=== PATIENT | female | born 1935 | race Caucasian/White ===

== ENCOUNTER 2019-06-14 15:44 | Day surgery (SDC) ==
[2019-06-14] MEDS ORDERED: XYLOCAINE-MPF 2% ONE (15:49)
[2019-06-14] MEDS ORDERED: NEO-SYNEPHRINE ONE (15:49)
[2019-06-14] MEDS ORDERED: SODIUM CHLORIDE 0.9% 20 ML ONE (15:49)
[2019-06-14] MEDS ORDERED: ROBINUL ONE (15:49)
[2019-06-14] MEDS ORDERED: QUELICIN (DOSE) ONE (15:49)
[2019-06-14] MEDS ORDERED: DIPRIVAN 1% ONE (15:56)
[2019-06-14] MEDS ORDERED: KEFZOL 1 GM/D5W 2 GM/100 ML IVPB ONE (16:13)
[2019-06-14] MEDS ORDERED: LR 1,000 ML ONE ×2 (16:14→18:28)
[2019-06-14] MEDS: NITROGLYCERIN 0.1MG/HR PATCH TD ONE ×2 (16:38→16:49)
[2019-06-14 16:41] LABS: BASO# 0.03 X1000 (0.0-0.2); BASO% 0.1 % (0.0-0.8); HEMATOCRIT 39.5 % (37.0-47.0); HEMOGLOBIN 12.6 g/dL (12.0-16.0); IMM GRAN# 0.05 X1000 (0.0-0.04); IMM GRAN% 0.2 % (0.0-0.5); LYMPH# 1.22 X1000 (1.2-3.4); MCH 27.5 PG (27-31); MCHC 31.9 g/dL (33-37); MCV 86.1 FL (81-99); MONO# 1.45 X1000 (0.11-0.59); MONO% 7.1 % (1.7-9.3); MPV 11.8 FL (7.4-10.4); NEUT# 17.74 X1000 (1.4-6.5); NEUT% 86.6 % (42.2-75.2); PLT 216 X1000 (130-400); RBC 4.59 XMIL (4.2-5.4); RDW 14.9 % (11.5-14.5); WBC 20.49 X1000 (4.8-10.8)
--- NOTE | 2019-06-14 16:44 | EKG Report ---
Test Performed on : 06/14/2019 4:31:02 PM Test Reason : pre-op Blood Pressure : / mmHG Vent. Rate : 091 BPM Atrial Rate : 091 BPM P-R Int : 142 ms QRS Dur : 084 ms QT Int : 348 ms P-R-T Axes : 041 008 035 degrees QTc Int : 428 ms Normal sinus rhythm. Normal ECG When compared with ECG of 16-FEB-2010 10:16, Vent. rate has increased BY 40 BPM Confirmed by Chata TATE, José Miguel ([id number]) on 06/17/2019 10:30:36 AM
[2019-06-14] MEDS ORDERED: NITROGLYCERIN ONE (16:45)
[2019-06-14] MEDS ORDERED: ZOFRAN ONE (16:51)
[2019-06-14 16:54] LABS: LARGE PLATELETS OCCASIONAL; LYMPHS 7 % (21-51); MONO 2 % (1-9); SEGS 91 % (42-75)
[2019-06-14] MEDS ORDERED: NITROGLYCERIN TD ONE (17:00)
[2019-06-14 17:03] LABS: CREATININE 1.5 mg/dL (0.5-0.9); POTASSIUM 4.1 mmol/L (3.5-5.1)
[2019-06-14] MEDS ORDERED: DILAUDID ONE (17:30)
[2019-06-14] MEDS ORDERED: OFIRMEV 1000 MG/ISOTONIC SOLN 1,000 MG/100 ML BOTTLE ONE (17:35)
[2019-06-14] MEDS: ZOSYN 3.375 GM in NS 50 ML IV SCH (18:00)
[2019-06-14] MEDS ORDERED: LR 1,000 ML IV SCH ×2 (18:15→19:30)
[2019-06-14] MEDS ORDERED: ZOFRAN IV PRN (18:15)
[2019-06-14] MEDS ORDERED: LABETALOL IV PRN (18:15)
[2019-06-14] MEDS ORDERED: NORCO-7.5 PO PRN (18:15)
[2019-06-14] MEDS ORDERED: VANCOMYCIN IV PER PHARMACY MISC SCH (20:00)
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
[2019-06-14] MEDS ORDERED: VANCOMYCIN 1,300 MG in NS 250 ML IV ONE (21:00)
[2019-06-14] MEDS: PERIDEX MT SCH (21:30)
[2019-06-14] MEDS: FLOMAX PO SCH (21:30)
[2019-06-14] MEDS: COLACE PO SCH (21:30)
[2019-06-15] MEDS: ZOSYN 3.375 GM in NS 50 ML IV SCH ×4 (01:18→18:57)
[2019-06-15] MEDS: TYLENOL PO PRN ×2 (03:21→15:27)
--- NOTE | 2019-06-15 06:56 | OPERATIVE NOTE ---
PROCEDURE DATE: 06/14/2019 PREOPERATIVE DIAGNOSES: 1. Left hydronephrosis. 2. Urinary tract infection. 3. Left ureteropelvic junction stone. POSTOPERATIVE DIAGNOSES: 1. Left hydronephrosis. 2. Urinary tract infection. 3. Left ureteropelvic junction stone. PROCEDURES PERFORMED: 1. Cystoscopy with left retrograde pyelogram. 2. Left ureteral stent placement. SURGEON: Herbert Fontana MD CHAPTER RELATIONS ADMINISTRATOR: None. COMPLICATIONS: None. BLOOD LOSS: Minimal. DRAINS: 1. 6 x 22 cm left ureteral stent. 2. A 16-Martiniquais Mejia catheter. SPECIMENS REMOVED: Urine for culture. INDICATIONS FOR PROCEDURE: Ms. Madrigal is an 83-year-old, who presented to [facility] around 3:00 in the morning complaining of left flank pain as well as chills, nausea and episodes of shaking. The patient had a CT scan performed which showed a 1.8 cm left renal pelvis stone with associated mild hydronephrosis. The patient had blood work drawn, which showed a white blood cell count of 11, and a creatinine of 1.3. The patient was discharged home to follow up with local urologist on Friday. The patient called our Urology office today and we recommended coming in to bee seen due to the size of her stone and ungoing pain. The patient evaluated and complained of chills and shaking. The patient was not tachycardic at the time, and had a blood pressure of 150 systolic. Due to her symptoms of fatigue and tiredness, and urine showing moderate blood and leukocytes, concern arose that the patient may have obstructive uropathy with likely infection. I recommended proceeding with cystoscopy and left ureteral stent placement. Risks, benefits, and alternatives of the procedure discussed with the patient. The patient elected to proceed. DESCRIPTION OF PROCEDURE: After informed consent was obtained, the patient was brought to the operating room and placed on the operating room table in supine position. Patient received preoperative antibiotics and underwent endotracheal intubation. She was positioned in a dorsal lithotomy position, and was prepped and draped in usual sterile fashion. A preoperative time-out was performed with all parties in agreement including anesthesia, surgical, and nursing staff. At which point I inserted a 21-Martiniquais cystourethroscope through the urethra and into the bladder. Once in the bladder, a large amount of sediment and debris was seen. This was pulled out through a syringe and sent as a urine culture. The patient's bladder was then drained completely, and cycled to remove all sediment. Once this was performed, the entirety of the bladder was inspected with mild trabeculations evidence of bilateral diverticulum. They were small and wide-mouth. No obvious papillary tumors were seen, erythema was seen throughout the bladder and most prominent at base as well as cobblestoning with concern for active urinary tract infection. Equipment Analyst fluoroscopy was then performed which showed no obvious calcifications or densities. At which point the catheter was passed through the cystoscope. Flushed of all bubbles and the left ureteral orifice was cannulized and gently injected with approximately 3 mL. This outlined a normal ureter and collecting system with large filling defect seen within the kidney itself corresponding to the patient's ureteropelvic stone. At which point, a ZIPwire was passed through the scope and through the open- ended catheter up into the kidney, and seen to coil. The catheter was completely removed, and a 6 x 22 cm ureteral stent was then obtained and passed over the wire up into the kidney itself with good curl within the collecting system endoscopically visualized in the bladder. A large amount of sediment returned through and around the stent, which was irrigated out. The decision was elected to leave the bladder full, and then place a 16- Martiniquais Mejia catheter to optimize drainage. This inserted in usually technique and was inflated with 10 mL of sterile water, and placed to drainage with a StatLock on the lower extremity. The patient was then awoken, and was taken to recovery room in stable condition. The patient will be monitored overnight in the hospital. We will broaden her antibiotic coverage. The patient had a white blood cell count of 20.9 on preop labs as well as a renal function of 1.5. She is febrile to 102.6, and remained afebrile in recovery. The patient received a dose of Zosyn in recovery and will also add Vancomycin. Patient had consult with the hospitalist and will admit her to Dr. Jolly's service. Call Dr. Love this afternoon to discuss the case with him, and he will continue to monitor. Would keep on broad-spectrum antibiotics. We will follow up urine culture, and tailor antibiotics to culture results. Have morning labs set up for her. Follow up renal function and white blood cell count. cc: Herbert Fontana MD MTDD
[2019-06-15 07:10] LABS: HEMATOCRIT 32.5 % (37.0-47.0); HEMOGLOBIN 10.2 g/dL (12.0-16.0); MCH 27.8 PG (27-31); MCHC 31.4 g/dL (33-37); MCV 88.6 FL (81-99); MPV 11.9 FL (7.4-10.4); RBC 3.67 XMIL (4.2-5.4); RDW 14.9 % (11.5-14.5); WBC 14.99 X1000 (4.8-10.8)
[2019-06-15 07:27] LABS: CALCIUM 8.2 mg/dL (8.8-10.2); CREATININE 1.5 mg/dL (0.5-0.9); MAGNESIUM 1.5 mg/dL (1.5-2.7); POTASSIUM 3.5 mmol/L (3.5-5.1)
[2019-06-15] MEDS ORDERED: LR 1,000 ML IV SCH (08:00)
--- NOTE | 2019-06-15 09:31 | PROGRESS NOTE ---
DATE: 06/15/2019 OBJECTIVE: She did have a little more fever last night by her report, but temp this morning 98.6. I do not see recorded temp above that. Pupils are equal. No distended neck veins. Lungs are clear in all lung lundberg. Cardiovascular: Regular rhythm and rate without murmur or S3. Abdomen is soft. Skin is warm and dry. She reports she feels better. Blood pressure running between 81 to 87/46 to 62. She feels weak, but she does feel better than yesterday. ASSESSMENT AND PLAN: 1. Left ureteral stone, hydronephrosis, pyelonephritis in the face of splenectomy: Continue the Zosyn 3.375 g IV q.6. I told her she may need to stay today. She is on Flomax 0.4 mg daily. Her blood cultures are pending. Actually, we have urine culture. I do not know that we have blood cultures. If she spikes a temp above 101, I want to get some blood cultures. 2. History of coronary artery disease, stent in the right coronary artery, aware. 3. Hypertension. 4. Creatinine when she presented was 1.5. Creatinine is still 1.5 today. We will check CBC and electrolytes again in the morning. White blood count down to 14,990. So I suspect we need to stay another 24 hours. Check another CBC and basic metabolic profile in the morning. cc: MD Herbert White MD
[2019-06-15] MEDS: PERIDEX MT SCH ×2 (09:38→23:39)
[2019-06-15] MEDS: COLACE PO SCH ×2 (09:38→23:39)
[2019-06-15] MEDS: FLOMAX PO SCH (09:38)
--- NOTE | 2019-06-15 13:38 | PROGRESS NOTE ---
DATE: 06/15/2019 SUBJECTIVE: Postoperative day 1 from cystoscopy and left ureteral stent placement. The patient had a large amount of purulence drain from the kidney on placement of stent. The patient had some fevers overnight, temperature of 100.5 degrees this morning. Most recent temperatures have been 98.6 and 98.9. Blood pressure were low this morning. He received a bolus of fluid, which has improved it to 127/51 this morning. The patient feels that her fatigue and tiredness have improved significantly. She denies any nausea or vomiting. She overall feels that she is improved from yesterday preoperatively. PHYSICAL EXAMINATION: Vital Signs: Temperature 98.9 degrees, heart rate 76, blood pressure 127/51, oxygen saturation 96% on room air. General: No acute distress. Resting comfortably in bed. Alert and oriented x3. Respiratory: Good respiratory effort without audible wheezing or rales. Cardiovascular: Regular rate. Abdomen: Soft, nontender, nondistended. No palpable masses. : No suprapubic tenderness. No CVA tenderness. Urethral catheter in place, draining clear-yellow urine. LABORATORY DATA: White blood cell count 14.99, hemoglobin 10.2, hematocrit 32.5, platelets 183,000. Sodium 140, potassium 3.5, chloride 103, bicarb 26, BUN 17, creatinine 1.5, glucose 114, calcium 8.2. Magnesium 1.5. MICROBIOLOGY: Urine culture without growth. ASSESSMENT AND PLAN: Ms. Madrigal is an 83-year-old with hypertension and hypercholesterolemia, who presented to Urology Clinic after going to [facility] complaining of left flank pain and had CT scan showing a 1.8 cm stone. The patient was having fevers, chills, shaking, and persistent nausea in the office. She was evaluated and taken to the operating room yesterday for stent placement. The patient had a large amount of purulence draining from the kidney. The patient had some hypotension and fevers yesterday. White blood cell count preoperatively was 20.5. White blood cell count this morning is 15. Creatinine remained stable at 1.5 from preoperative of 1.5. She feels like her pain is well controlled. She states that she has some irritation with the catheter. The catheter has been draining well with no evidence of clots, and is clear-yellow this morning. Urine culture so far is not showing any growth. Would continue with indwelling catheter until tomorrow. Would plan to remove the catheter in the morning. If renal function and white blood cell count downtrend, could consider discharge depending on culture results. Continue to monitor vital signs as she did have some hypotension and fevers this morning. T-max so far today was 100.5 at 4 a.m., was up to 102.6 preoperatively yesterday. Will continue to monitor from a urologic standpoint. Please call with questions or concerns. cc: Herbert Fontana MD MTDD
[2019-06-15] MEDS: DELSYM LIQUID PO PRN (15:28)
[2019-06-15] MEDS: MORPHINE IV PRN (20:13)
[2019-06-16] MEDS: MORPHINE IV PRN ×2 (00:12→04:37)
[2019-06-16] MEDS: ZOSYN 3.375 GM in NS 50 ML IV SCH ×2 (00:13→08:10)
[2019-06-16 07:12] LABS: BASO# 0.03 X1000 (0.0-0.2); BASO% 0.3 % (0.0-0.8); EOS# 0.26 X1000 (0.0-0.7); EOS% 2.2 % (0.0-10.0); HEMATOCRIT 32.6 % (37.0-47.0); IMM GRAN# 0.03 X1000 (0.0-0.04); IMM GRAN% 0.3 % (0.0-0.5); LYMPH# 2.63 X1000 (1.2-3.4); LYMPH% 22.8 % (20.5-51.1); MCH 27.2 PG (27-31); MCHC 30.7 g/dL (33-37); MCV 88.6 FL (81-99); MONO% 8.7 % (1.7-9.3); MPV 11.9 FL (7.4-10.4); NEUT# 7.61 X1000 (1.4-6.5); NEUT% 65.7 % (42.2-75.2); PLT 176 X1000 (130-400); RBC 3.68 XMIL (4.2-5.4); RDW 14.9 % (11.5-14.5); WBC 11.56 X1000 (4.8-10.8)
[2019-06-16 07:53] VITALS: BP 124/62
[2019-06-16 07:54] LABS: CALCIUM 8.2 mg/dL (8.8-10.2); CREATININE 1.1 mg/dL (0.5-0.9); MAGNESIUM 1.6 mg/dL (1.5-2.7); POTASSIUM 3.9 mmol/L (3.5-5.1)
--- NOTE | 2019-06-16 08:08 | PROGRESS NOTE ---
DATE: 06/16/2019 SUBJECTIVE: Postoperative day 2 from cystoscopy, left retrograde pyelogram, and left ureteral stent placement. The patient was hypotensive yesterday morning, and has improved today. She remains afebrile overnight. She did have a temperature of 101.8 degrees yesterday at 3:00. She denies any nausea or vomiting. She is tolerating p.o. intake. Her catheter has been draining clear yellow urine. She does describe a small amount of coarse cough, that she states is not productive. OBJECTIVE: Vital Signs: Temperature 99.2, heart rate 68, blood pressure 129/65, oxygen saturation 95%. General: No acute distress. Resting comfortably in bed. Alert and oriented x3. Respiratory: Good respiratory effort, with slight decreased breath sounds at the bases, with no accessory muscle use. Cardiovascular: Regular rate. Abdomen: Soft, nontender, nondistended. No palpable masses or hepatosplenomegaly. : No suprapubic tenderness. No CVA tenderness. Urethral catheter in place, draining clear urine. Skin: No skin lesions or rashes. LABORATORY DATA: White blood cell count 11.5, hemoglobin 10, hematocrit 32.6, platelets 176,000. BMP has not returned today. ASSESSMENT AND PLAN: Ms. Madrigal is an 83-year-old with hypertension and hypercholesterolemia, who presented to [facility]rology Clinic complaining of left flank pain, fatigue, tiredness, nausea, and fevers. He had a CT scan preformed at [facility] on Friday that showed 1.8 cm in the left kidney with hydronephrosis. The patient was taken to the operating room on Friday, and had left ureteral stent placement with a large amount of purulence draining from the kidney. Her white blood cell count preoperatively was 20.5. It downtrended to 11 today. She remains afebrile since 3 p.m. yesterday. I think the patient is having episodes of intermittent fevers related to her pyelonephritis. She denies any nausea or vomiting, denies any significant pain. In talking with her, she is interested in being discharged home. The patient is a nurse. Her urine culture finalized negative today. Uncertain what bacteria she had. Seemingly, it responded to the antibiotics she was given. Will try to call [facility] and try to obtain culture results if any were sent from there. If not, would have to treat her with oral Levaquin due to concern over pyelonephritis and systemic infection. Will try to give her Levaquin until followup. The patient is scheduled to undergo left extracorporeal shockwave lithotripsy next week for breaking up her stone. This was discussed with the patient and her daughter at bedside this morning. Will continue to monitor from a urologic standpoint. Will remove her catheter this morning, and see if she is able to urinate. Please call with questions or concerns. cc: Herbert Fontana MD MTDD
[2019-06-16] MEDS ORDERED: LASIX PO ONE (08:33)
[2019-06-16] MEDS ORDERED: VITAMIN D PO SCH (09:00)
[2019-06-16] MEDS ORDERED: BIOTIN PO SCH (09:00)
[2019-06-16] MEDS ORDERED: ZETIA PO SCH (09:00)
[2019-06-16] MEDS: FLOMAX PO SCH (09:24)
[2019-06-16] MEDS: COLACE PO SCH (09:24)
[2019-06-16] MEDS: PERIDEX MT SCH (09:24)
[2019-06-16] MEDS: DELSYM LIQUID PO PRN (09:27)
[2019-06-16] MEDS ORDERED: VANCOMYCIN 1 GM/NS 1 GM/250 ML IVPB IV SCH (20:00)
--- NOTE | 2019-06-17 10:57 | Diag Imaging Result Doc PS360 ---
FLUROSCOPY CYSTO - 06/14/2019 INDICATION: LT STENT PLACEMENT TECHNIQUE: Left sided ureterogram. The exam was performed by the patient's urologist. Eight images were obtained. COMPARISON: None FINDINGS: Left ureterogram was performed. A left nephroureteral stent was placed in good position. IMPRESSION: No complication. Electronically signed by Sanjay Cornejo 06/17/2019 10:54 AM
== END 2019-06-16 11:17 | disposition home or self-care (01) ==
LOC: OR 15:44 → 4N 15:44 → OBSVTOIN 17:00 → INTOOBSV 17:00 → OR 06-16 11:17
PROVIDERS: ATTEND Urology